=== PATIENT | male | born 1980 | race Caucasian/White ===

== ENCOUNTER 2017-02-21 09:14 | Emergency (ER) | payer MEDICAID, OTHER ==
[2017-02-21 09:18] VITALS: BP 149/84; BMI 24.1
--- NOTE | 2017-02-21 09:56 | DR.GENAD ---
HPI - PCP Primary Care Physician: SARWAT GUZMAN - HPI Comment HPI Comment: MACHINE RAN OVER PATIENT FOOT AND ANKKLE. UNABLE TO PUT WEIGHT ON LEFT ANKLE. SWELLING AND BRUISING PRESENT. - Complaint/Symptoms Chief Complaint Doctors Comments: PAIN LEFT FOOT AND ANKLE DUE TO INJURY 2 DAYS AGO. Chief Complaint:: PATIENT STATED THAT HE IS HAVING LEFT FOOT PAIN. WAS RAN OVER BY A MECHINE. - Nurses notes reviewed Nurses Notes Review: Yes - Source History Provided: Patient - Mode of Arrival Mode of Arrival: Ambulatory - Timing Onset of Chief Complaint: 02/19/17 Came on: Suddenly - Duration Duration: Constant Duration: Days - Severity Severity: Moderate PMH - PMH Past Medical History: Yes Past Medical History: Diabetes, Hypertension Past Medical History Comment: KIDNEY PANCREAS/TRANSPLANT Past Surgical History: Yes Surgical History: Cholecystectomy, Ortho Surgery, Other Past Surgical History Comment: TRANSPLANT - Family History History of Family Medical Conditions: Yes Family Medical History: Diabetes Mellitus, Cancer, [place], Coronary Artery Disease, Sudden Cardiac , Hypertension - Social History Does patient currently use any type of tobacco product: Yes Have you used tobacco products in the last 12 months: Yes Type of Tobacco Use: Cigarettes Does any household member use tobacco: No Alcohol Use: None Do you use any recreational Drugs:: No Lives With: Family Lives Where: Home - infectious screening In the last 2 months have you had wt loss of >10#?: NO Have you had fever, night sweats or hemotysis?: No Have you traveled outside the country in the last 6 months?: No ROS - Review of Systems Constitutional: No Symptoms Reported Eyes: No Symptoms Reported ENTM: No Symptoms Reported Respiratoy: No Symptoms Reported Cardiovascular: No Symptoms Reported Gastrointestinal/Abdominal: No Symptoms Reported Genitourinary: No Symptoms Reported Neurological: No Symptoms Reported Musculoskeletal: Muscle Pain, Left, Ankle, Foot Integumentary: No Symptoms Reported Hematologic/Lymphatic: No Symptoms Reported Endocrine: No Symptoms Reported All Other Systems: Reviewed and Negative PE - Vital Signs Vitals: Pulse Rate 93 Respiratory Rate 20 Blood Pressure 149/84 O2 Sat by Pulse Oximetry 99 - General Limitations: No Limitations General Appearance: Alert - Head Head Exam: Normal Inspection - Eyes Eye exam: Normal Appearance - ENT ENT Exam: Normal External Ear Exam Nose Exam: Normal Nose Exam Mouth Exam: Normal Inspection Throat Exam: Normal Inspection - Neck Neck Exam: Trachea Midline - Chest Chest Inspection: Symmetric Chest Wall Rise - Respiratory Respiratory Exam: Normal Lung Sounds Bilat Respiratory Exam: Bilateral Clear to Auscultation - Cardiovascular Cardiovascular Exam: Regular Rate, Normal Rhythm, Normal Heart Sounds - Abdominal Exam Abdominal Exam: Normal Bowel Sounds, Soft, Tenderness - Extremities Extremities Exam: Tenderness (SWELLING AND TENDERNESS LT FOOT AND ANKLE.), Joint Swelling (LEFT ANKLE). negative: Full ROM (DECREASE ROM LT ANKLE.) - Back Back Exam: Normal Inspection - Neurologic Neurological Exam: Alert, Oriented X3 - Psychiatric Psychiatric Exam: Anxious - Skin Skin Exam: Erythema (BRUISING LT ANKLE AND FOOT) [facility] - Additional Information Additional Information Obtained From: Family - Differential Diagnosis Differential Diagnosis: CONTUSION, SPRAIN, FRATURE LEFT ANKLE AND FOOT. Course - Treatment Treatment: SEE ORDERS. IM PAIN MED IN ED. PAIN DECREASING. ON CRUTCHES ALREADY. - Education/Counseling Education/Counseling: Patient, Education Educated On: Treatment, Diagnosis, Needs for Follow Up ROR - XRAY XRAY Interpreted by: Radiologist XRAY Findings: REPORT DISCUSS WITH PATIENT AND HIS FAMILY. - Diagnosis Discharge Problem: Left ankle sprain Qualifiers: Encounter type: initial encounter Involved ligament of ankle: unspecified ligament Qualified Code(s): S93.402A - Sprain of unspecified ligament of left ankle, initial encounter Contusion of left ankle Qualifiers: Encounter type: initial encounter Qualified Code(s): S90.02XA - Contusion of left ankle, initial encounter Contusion of left foot Qualifiers: Encounter type: initial encounter Qualified Code(s): S90.32XA - Contusion of left foot, initial encounter Sprain of left foot Qualifiers: Encounter type: initial encounter Qualified Code(s): S93.602A - Unspecified sprain of left foot, initial encounter - Discharge Plan Disposition: 01 HOME, SELF-CARE Condition: Stable Prescriptions: Hydrocodone-Acet 5 mg/325 mg [[place] 5/325 mg Tab] 1 tab PO Q6H PRN #15 tab PRN Reason: Pain - Follow ups/Referrals Follow ups/Referrals: NIKKY,None [Primary Care Provider] - 02/24/17 BRANT ADAIR [STAFF PHYSICIAN] - 02/24/17 - Instructions Instructions: Acute Ankle Sprain With Phase I Rehab-SportsMed, Crutch Use, Easy -to-Read Additional Instructions: RETURN TO ED IF WORSE. YOU ALSO HAVE CONTUSION AND SPARIN OF LEFT FOOT AND ANKLE.
[2017-02-21] MEDS ORDERED: MORPHINE SULFATE INJ 4 MG IM ONE (10:01)
[2017-02-21] MEDS ORDERED: ZOFRAN INJ 4 MG VIAL IM ONE (10:01)
[2017-02-21] MEDS ORDERED: ZOFRAN INJ 4 MG VIAL ONE (10:06)
[2017-02-21] MEDS ORDERED: MORPHINE SULFATE INJ 4 MG ONE (10:06)
--- NOTE | 2017-02-21 10:35 | RAD ---
HISTORY: Pain after injury Study: Three views left foot Comparison: None Findings: No acute cortical disruption or dislocation can be identified. No significant soft tissue swelling or injury can be seen. The visualized portions of the talus and calcaneus are unremarkable. IMPRESSION: 1. Negative exam. Reported By:
--- NOTE | 2017-02-21 10:36 | RAD ---
HISTORY: Injury, dorsal pain Study: Left ankle three view Comparison: None Findings: No acute cortical disruption or dislocation can be identified. The ankle mortise remains well align ed. No significant soft tissue swelling or injury can be seen. The visualized portions of the talu s and calcaneus are unremarkable. IMPRESSION: 1. Negative exam. Reported By:
== END 2017-02-21 11:08 | disposition home or self-care (01) ==
LOC: ER 09:24
DX: S93.402A Sprain of unspecified ligament of left ankle, initial encounter (principal); S90.02XA Contusion of left ankle, initial encounter; S90.32XA Contusion of left foot, initial encounter; S93.602A Unspecified sprain of left foot, initial encounter; X58.XXXA Exposure to other specified factors, initial encounter; Y92.9 Unspecified place or not applicable
CPT/HCPCS: 73610; 73630; 96372; 99282; J2270; J2405

== ENCOUNTER 2017-03-27 13:17 | Emergency (ER) | payer MEDICAID, OTHER ==
[2017-03-27 13:29] VITALS: BP 131/85; BMI 23.6
[2017-03-27] MEDS ORDERED: MORPHINE SULFATE INJ 4 MG IM ONE (15:35)
[2017-03-27] MEDS ORDERED: ZOFRAN INJ 4 MG VIAL IM ONE (15:35)
--- NOTE | 2017-03-27 15:37 | DR.GENAD ---
HPI - PCP Primary Care Physician: Manuel - Complaint/Symptoms Chief Complaint Doctors Comments: FELL, INJURY LEFT SHOULDER. PREVIUOS INJURY SAME SHOULDER. FELL TONIGHT. Chief Complaint:: "I fell about an hour ago and I felt something pop in my left shoulder. I have pain running from my neck all the way to the back of my shoulder. I have had an MRI done here in the past showing a torn rotator cuff, but I just want to see what kind of damage I just did to it." - Nurses notes reviewed Nurses Notes Review: Yes - Source History Provided: Patient - Mode of Arrival Mode of Arrival: Ambulatory - Timing Onset of Chief Complaint: 03/27/17 PMH - PMH Past Medical History: Yes Past Medical History: Diabetes, Hypertension Past Surgical History: Yes Surgical History: Cholecystectomy, Organ Transplant, Ortho Surgery, Other Past Surgical History Comment: Eye, shoulder, [place] installation, Kidney and pancreas transplant. - Family History History of Family Medical Conditions: Yes Family Medical History: Diabetes Mellitus, Cancer, [place], Coronary Artery Disease, Sudden Cardiac , Hypertension - Social History Does patient currently use any type of tobacco product: Yes Have you used tobacco products in the last 12 months: Yes Type of Tobacco Use: Cigarettes Does any household member use tobacco: Yes Alcohol Use: None Do you use any recreational Drugs:: No Lives With: Alone Lives Where: Home - infectious screening In the last 2 months have you had wt loss of >10#?: NO Have you had fever, night sweats or hemotysis?: No Have you traveled outside the country in the last 6 months?: No Isolation: Standard ROS - Review of Systems Constitutional: No Symptoms Reported Eyes: No Symptoms Reported ENTM: No Symptoms Reported Respiratoy: No Symptoms Reported Cardiovascular: No Symptoms Reported Gastrointestinal/Abdominal: No Symptoms Reported Genitourinary: No Symptoms Reported Neurological: No Symptoms Reported Musculoskeletal: Left, Shoulder (PAIN ) Integumentary: No Symptoms Reported Endocrine: No Symptoms Reported All Other Systems: Reviewed and Negative PE - Vital Signs Vitals: Temperature 98.1 F Pulse Rate 83 Respiratory Rate 18 Blood Pressure 131/85 O2 Sat by Pulse Oximetry 95 - General Limitations: No Limitations General Appearance: Alert - Head Head Exam: Normal Inspection - Eyes Eye exam: Normal Appearance - ENT ENT Exam: Normal External Ear Exam External Ear Exam: Normal External Inspection TM/Canal Exam: Bilateral Normal Nose Exam: Normal Nose Exam Mouth Exam: Normal Inspection Throat Exam: Normal Inspection - Neck Neck Exam: Trachea Midline - Chest Chest Inspection: Symmetric Chest Wall Rise - Respiratory Respiratory Exam: Normal Lung Sounds Bilat Respiratory Exam: Bilateral Clear to Auscultation - Cardiovascular Cardiovascular Exam: Regular Rate, Normal Rhythm, Normal Heart Sounds - Abdominal Exam Abdominal Exam: Normal Inspection - Extremities Extremities Exam: Tenderness (TENDERNESS LT SHOULDER.), Joint Swelling (LT SHOULDER). negative: Full ROM (DECREASE ROM.) - Back Back Exam: Normal Inspection - Neurologic Neurological Exam: Alert, Oriented X3 - Psychiatric Psychiatric Exam: Anxious - Skin Skin Exam: Normal Color MDM - Differential Diagnosis Differential Diagnosis: SPRAIN, CONTUSION FRACTURE LT SHOULDER. - Diagnosis Discharge Problem: Sprain of left shoulder - Discharge Plan Disposition: 01 HOME, SELF-CARE Condition: Stable Prescriptions: Acetaminophen with Codeine [Tylenol/Codeine #3 300-30 mg] 1 tab PO Q4-6H PRN # 15 tab PRN Reason: Pain Cyclobenzaprine HCl [FLEXERIL 10 MG *] 10 mg PO BID PRN #15 tab PRN Reason: - Follow ups/Referrals Follow ups/Referrals: DANIELLE GRUBER [Primary Care Provider] - 1 day - Instructions Instructions: Shoulder Sprain Additional Instructions: RETURN TO ED IF WORSE.
[2017-03-27] MEDS ORDERED: MORPHINE SULFATE INJ 4 MG ONE (15:43)
[2017-03-27] MEDS ORDERED: ZOFRAN INJ 4 MG VIAL ONE (15:43)
--- NOTE | 2017-03-27 16:14 | RAD ---
Left shoulder, three view Indication: Fall with left shoulder pain Comparison: MRI 06/07/15 Findings: No acute fracture or malalignment is identified. No appreciable degenerative changes are se en. The acromiohumeral interval is within normal limits. There is no gross soft tissue injury. Impression: No acute radiographic abnormality of the left shoulder. Reported By:
== END 2017-03-27 16:52 | disposition home or self-care (01) ==
LOC: ER 13:26
DX: S43.402A Unspecified sprain of left shoulder joint, initial encounter (principal); W19.XXXA Unspecified fall, initial encounter; Y92.9 Unspecified place or not applicable
CPT/HCPCS: 73030; 96372; 99282; 99283; J2270; J2405

== ENCOUNTER 2017-10-22 12:36 | Emergency (ER) | payer OTHER, MEDICAID ==
[2017-10-22 12:43] VITALS: BP 116/68; BMI 22.8
--- NOTE | 2017-10-22 13:26 | DR.URIAD ---
HPI - Time Seen Time seen: 13:25 - PCP Primary Care Physician: GRACIELA PINTO - HPI Comment HPI Comment: COUGH PRODUCTIVE , GREENISH SPUTUM. NON PRESCRIPTION MEDS NOT HELPING. GETTING WORSE. - Complaint Chief Complaint Doctors Comments: COUGH, CONGESTION AND CHEST PAIN TIMES ONE WEEK. Chief Complaint:: PT C/O FOR THE PAST WEEK HAVING CCC, AND THAT IT IS THICK AND WONT COME UP AND I AM TIRED OF FEELING BAD,, ,PT C/O CHILLS.. ? FEVER - Reviewed Nurses Notes Reviewed: Yes - Source History Provided: Patient - Mode of Arrival Mode of Arrival: Ambulatory - Timing Onset of Chief Complaint: 10/15/17 - Context Recent Treated Infections: None History of Respiratory: None - Quality Quality of Cough: Productive, Green Rhinorrhea: Brown Shortness of Breath: Moderate - Associated Signs and Symptoms Other Signs and Symptoms: Cough, Myalgias, Shortness of Breath, URI, Wheeze PMH - PMH Past Medical History: Yes Past Medical History: Diabetes, Hypertension Past Surgical History: Yes Surgical History: Cholecystectomy, Organ Transplant, Ortho Surgery, Other Past Surgical History Comment: KIDNEY AND PANCREAS TRANSPLANT,, [place] - Family History History of Family Medical Conditions: Yes Family Medical History: Diabetes Mellitus, Cancer, [place], Coronary Artery Disease, Sudden Cardiac , Hypertension - Social History Does patient currently use any type of tobacco product: Yes Have you used tobacco products in the last 12 months: Yes How many years tobacco product used: 26 Does any household member use tobacco: Yes Alcohol Use: None Do you use any recreational Drugs:: No Lives With: Family Lives Where: Home - infectious screening In the last 2 months have you had wt loss of >10#?: NO Have you had fever, night sweats or hemotysis?: No Have you traveled outside the country in the last 6 months?: No Isolation: Standard ROS - Review of Systems Constitutional: Weakness, Fatigue. negative: Chills, Fever Eyes: No Symptoms Reported. negative: Eye Pain, Discharge ENTM: Nose Discharge, Nose Congestion, Throat Pain. negative: Ear Pain Gastrointestinal/Abdominal: No Symptoms Reported Genitourinary: Other (paraplegia, in and out [facility].) Neurological: Pre-existing Deficit (paraplegia.), Other (possible tremors or shaking today.) Musculoskeletal: Muscle Pain Integumentary: Change in Color All Other Systems: Reviewed and Negative (patients mother and private nurse answering questions for patient.) PE - Vital Signs Vitals: Temperature 98.2 F Pulse Rate 78 Respiratory Rate 20 Blood Pressure 116/68 O2 Sat by Pulse Oximetry 98 - General General Appearance: Alert, Other (respiratory distress at home. indwelling trachiostomy with supplementary oxygen.) - Head Head Exam: Other (no acute finding.) - Eyes Eye exam: PERRL - ENT ENT Exam: Normal External Ear Exam, TM's Normal Bilaterally. negative: Normal Oropharynx (throat red) External Ear Exam: Normal External Inspection TM/Canal Exam: Bilateral Normal Throat Exam: Tonsillar Erythema. negative: Tonsillomegaly, Tonsillar Exudate - Neck Neck Exam: Trachea Midline - Chest Chest Inspection: Symmetric Chest Wall Rise - Respiratory Respiratory Exam: Bilateral Rhonchi, Lower Rhonchi - Cardiovascular Cardiovascular Exam: Tachycardia - Abdominal Exam Abdominal Exam: Normal Bowel Sounds, Soft. negative: Tenderness - Extremeties Extremities Exam: Other (shaking on and off today.) - Back Back Exam: Other (PAIN RECTAL AREA.) - Neurologic Neurological Exam: Alert, Oriented X3 - Psychiatric Psychiatric Exam: Anxious - Skin Skin Exam: Intact MDM - Differential Diagnosis Differential Diagnosis: Otitis media, Streptococcal pharyngitis, Viral pharyngitis, Pneumonia, Sinsusitis, URI Course - Treatment Treatment: SEE ORDERS. - Education/Counseling Education/Counseling: Patient, Education Educated On: Diagnosis, Needs for Follow Up ROR - Labs Reviewed Laboratory Results Reviewed?: Yes - XRAY XRAY Interpreted by: Radiologist XRAY Findings: report discuss with patient. - Diagnosis Discharge Problem: Bronchitis, Sinusitis - Discharge Plan Disposition: 01 HOME, SELF-CARE Condition: Stable Prescriptions: Amoxicillin [Amoxil 875 mg] 875 mg PO Q12H #20 tab Promethazine W/Codeine [PHENERGAN W/CODEINE 6.25mg/10mg (5mL) *] 5 ml PO Q6H PRN #120 ml PRN Reason: Cough - Follow ups/Referrals Follow ups/Referrals: NFD,None [Primary Care Provider] - 3 days - Instructions Instructions: Sinusitis, Adult, [id number], Acute Bronchitis, Adult, Easy-to- Read Additional Instructions: RETURN TO ED IF WORSE.
--- NOTE | 2017-10-22 13:46 | RAD ---
Examination: Chest x-ray. Clinical History: Shortness of breath, chest congestion, cough, chest pain. Technique: PA and lateral views of the chest were obtained. Comparison: None available. Findings: The cardiac and mediastinal contours are within normal limits. No pneumothorax or pleural effusion is noted. The lungs appear clear. No acute osseous abnormality is noted. Impression: 1. No acute disease. Reported By:
[2017-10-22] MEDS ORDERED: PHENERGAN W/CODEINE 6.25MG/10MG PO ONE (14:08)
[2017-10-22] MEDS ORDERED: AMOXIL CAP 500 MG PO ONE ×2 (14:08→14:17)
[2017-10-22] MEDS ORDERED: PHENERGAN W/CODEINE 6.25MG/10MG ONE (14:13)
== END 2017-10-22 14:29 | disposition home or self-care (01) ==
LOC: ER 12:47
DX: J40 Bronchitis, not specified as acute or chronic (principal); J32.9 Chronic sinusitis, unspecified
CPT/HCPCS: 71046; 99282

== ENCOUNTER → 2017-11-19 | Outpatient (CLI) | payer OTHER, MEDICAID ==
[2017-10-22 12:43] VITALS: BP 116/68
--- NOTE | 2017-11-19 10:00 | MRI ---
Indication: Left shoulder pain Exam: MRI left shoulder without contrast. Technique: Routine multiplanar multisequence imaging was performed through the left shoulder Comparison: 06/07/2015. Findings: There is moderate thickening and increased signal along the distal supraspinatus tendon ext ending to the insertion site . There is minimal fluid signal near the inferior articular surface , al tarsha the insertion site . There is no retraction seen . The infraspinatus tendon is mildly thickened w ith increased signal distally which is unchanged . There is minimal edema or fluid in the subdeltoid bursa. There is prominent downsloping of the acromion anteriorly causing mild to moderate narrowing o f the acromiohumeral space which is unchanged. The labrum and biceps tendon are intact and normal sig nal intensity. There is no significant joint effusion. The bone marrow signal is normal throughout. Impression: Moderate supraspinatus tendinopathy with questionable mild fraying or small partial-thickness tear a long the inferior articular surface distally which is not significantly changed. Minimal subdeltoid bursitis. Mild infraspinatus tendinopathy which is unchanged. Prominent downsloping of the acromion anteriorly causing mild to moderate narrowing of the acromiohum eral space which is unchanged. Reported By:
== END ==
LOC: RAD 08:29
PROVIDERS: ATTEND Nurse Practitioner Family
DX: M25.512 Pain in left shoulder (principal); M75.52 Bursitis of left shoulder
CPT/HCPCS: 73221

== ENCOUNTER 2024-09-02 14:00 | Observation (INO) ==
[2024-09-02] MEDS: TYLENOL 500 MG TAB EXTRA STRENGTH PO ONE ×2 (14:24→19:20)
[2024-09-02 14:36] LABS: ABG BASE EXCESS -1.9 mmol/L (-2.0-2.0); ABG HCO3 22.2 mmol/L (22-26)
[2024-09-02] MEDS ORDERED: ZOSYN VIAL 4.5 GRAMS IV ONE (14:36)
[2024-09-02 14:37] LABS: ABG ALLEN TEST POS
[2024-09-02 14:45] LABS: LYMPHOCYTES # (AUTO) 0.6 X10^3/uL (1.3-2.9); NEUTROPHILS # (AUTO) 7.1 x10^3/uL (2.2-4.8)
[2024-09-02 14:49] LABS: BASOPHILS % (AUTO) 0.2 % (0.2-1.0); EOSINOPHILS % (AUTO) 0.1 % (0.9-2.9); HEMATOCRIT 41.9 % (42.0-54.0); HEMOGLOBIN 14.2 g/dL (13.5-18.0); LYMPHOCYTES % (AUTO) 7.2 % (21.0-51.0); MEAN CORPUSCULAR HEMOGLOBIN 29.9 pg (27.0-34.0); MEAN CORPUSCULAR HGB CONC 33.8 g/dL (33.0-35.0); MEAN CORPUSCULAR VOLUME 88.3 fL (80.0-100.0); MEAN PLATELET VOLUME 8.4 fL (7.4-11.0); MONOCYTES # (AUTO) 0.7 x10^3/uL (0.3-0.8); MONOCYTES % (AUTO) 8.1 % (0.0-13.0); NEUTROPHILS % (AUTO) 84.4 % (42.0-75.0); PLATELET COUNT 139 X10^3/uL (150.0-450.0); RED BLOOD COUNT 4.75 X10^6/uL (4.7-6.0); RED CELL DISTRIBUTION WIDTH 15.3 % (11.6-16.5); WHITE BLOOD COUNT 8.5 X10^3/uL (3.6-10.0)
[2024-09-02] MEDS: ZOSYN VIAL 4.5 GRAMS 4.5 G in NS 100 ML IV 100 ML IV SCH (15:07)
[2024-09-02] MEDS: NS 1,000 ML IV 1,000 ML IV SCH (15:07)
--- NOTE | 2024-09-02 15:18 | RAD ---
EXAM: Portable chest HISTORY: Shortness of breath COMPARISON: 07/03/2024 FINDINGS: Heart is upper limits normal in size. Jossie are normal. Lung kern are clear. No pleural effusio ns identified. No pneumothoraces identified. Bony thorax is unremarkable. IMPRESSION: No significant abnormality identified THIS IS AN ELECTRONICALLY VERIFIED FINAL REPORT 09/02/2024 2:55 PM - Electronically signed by Wei Oviedo MD
[2024-09-02 15:23] LABS: BLOOD UREA NITROGEN 23 mg/dL (7-18); CALCIUM 9.4 mg/dL (8.5-10.1); CARBON DIOXIDE 26.2 mmol/L (21-32); CHLORIDE 97 mmol/L (98-107); CREATININE 1.71 mg/dL (0.70-1.30); GLUCOSE 92 mg/dL (65-99); POTASSIUM 3.8 mmol/L (3.5-5.1); SODIUM 132 mmol/L (136-145); eGFR NON BLACK RACES 46 (>60)
[2024-09-02 15:24] LABS: INR 1.13 (0.8-1.3)
[2024-09-02] MEDS: PHARMACY CONSULT - VANCOMYCIN XX SCH (15:33)
[2024-09-02] MEDS: VANCOMYCIN HCL 1 G in D5W 250 ML IV 250 ML IV SCH (15:54)
[2024-09-02 18:05] LABS: BILIRUBIN,URINE NEGATIVE (NEGATIVE); BLOOD/HEMOGLOBIN,URINE NEGATIVE (NEGATIVE); GLUCOSE, URINE NEGATIVE (NEGATIVE); KETONES,URINE NEGATIVE (NEGATIVE); LEUKOCYTE ESTERASE ,URINE NEGATIVE (NEGATIVE); NITRITES,URINE NEGATIVE (NEGATIVE); PROTEIN,URINE 2+ (NEGATIVE); UROBILINOGEN,URINE NORMAL (NORMAL)
[2024-09-02 18:12] LABS: APPEARANCE,URINE CLEAR (CLEAR); COLOR,URINE YELLOW (YELLOW)
[2024-09-02 18:13] LABS: BACTERIA,URINE TRACE /HPF (NEGATIVE); RBC,URINE 0-2 /HPF (0-3); SQUAMOUS EPITHELIAL CELL,UR NEGATIVE /HPF (NEGATIVE)
--- NOTE | 2024-09-02 19:04 | DR.GENAD ---
HPI Time Seen Time Seen by Provider: 09/02/24 14:27 PCP Primary Care Physician: Annel Taylor HPI Comment HPI Comment: Patient states his girlfriend had been sick recently. Over the last 2 days he has had cough, congestion, nausea, diarrhea and shortness of breath. He states he feels like he had a fever but did not check his temperature. 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 Complaint/Symptoms Chief Complaint:: Patient states that for the past two days he has had congestion, coughing, feeling nauseated, and diarrhea. He states that he has been unable to sleep, eat, or drink during this time. He also states that he has had chills, but has not checked his temperature. He states that he has pain in the center of his chest whenever he breaths. He states that he has felt short of breath since yesterday morning. COVID-19 Coronavirus risk:travel/contact w/high risk person: Yes Has patient experienced Coronavirus symptoms: Yes Coronavirus symptoms experienced: Fever, Coughing and Shortness of Breath Source History Provided: Patient Mode of Arrival Mode of Arrival: Ambulatory Timing Onset of Chief Complaint: 08/31/24 PMH PMH Past Medical History: Yes Past Medical History: Diabetes and Hypertension Past Surgical History: Yes Surgical History: Cholecystectomy, Organ Transplant and Ortho Surgery Past Surgical History Comment: Pancreas and kidney transplant Family History History of Family Medical Conditions: Yes Family Medical History: Diabetes Mellitus, Cancer, [place], Coronary Artery Disease and Hypertension Social History Does patient currently use any type of tobacco product: No Have you used tobacco products in the last 12 months: No Type of Tobacco Use: None Does any household member use tobacco: No Alcohol Use: None Do you use any recreational Drugs:: No Lives With: Family Lives Where: Home Travel Risk Coronavirus risk:travel/contact w/high risk person: Yes Has patient experienced Coronavirus symptoms: Yes Coronavirus symptoms experienced: Fever, Coughing and Shortness of Breath Infectious screening In the last 2 months have you had wt loss of >10#?: NO Have you had fever, night sweats or hemotysis?: No Have you traveled outside the country in the last 6 months?: No Isolation: Droplet ROS Review of Systems Constitutional: See HPI, Chills, Fever, Malaise and Fatigue Eyes: No Symptoms Reported ENTM: See HPI, Nose Discharge and Nose Congestion Respiratoy: See HPI, Dry Cough and Short of Breath; negative Wheezing Cardiovascular: No Symptoms Reported; negative Chest Pain, Edema, Palpitations or Syncope Gastrointestinal/Abdominal: See HPI, Diarrhea and Nausea; negative Abdominal Pain, Constipation or Vomiting Genitourinary: No Symptoms Reported Neurological: No Symptoms Reported Musculoskeletal: No Symptoms Reported Integumentary: No Symptoms Reported Hematologic/Lymphatic: No Symptoms Reported Endocrine: No Symptoms Reported Psychiatric: No Symptoms Reported All Other Systems: Reviewed and Negative PE Vital Signs Vitals: Vital Signs Temperature 102.7 F Temperature 101.5 F Temperature 103.0 F Pulse Rate 93 Pulse Rate 90 Pulse Rate 96 Pulse Rate 84 Pulse Rate 82 Pulse Rate 79 Pulse Rate 83 Pulse Rate 83 Pulse Rate 82 Pulse Rate 88 Pulse Rate 83 Pulse Rate 87 Pulse Rate 89 Pulse Rate 88 Pulse Rate 93 Pulse Rate 95 Pulse Rate 96 Pulse Rate 95 Pulse Rate 96 Pulse Rate 97 Pulse Rate 96 Respiratory Rate 20 Respiratory Rate 41 Respiratory Rate 35 Respiratory Rate 29 Respiratory Rate 28 Respiratory Rate 31 Respiratory Rate 29 Respiratory Rate 29 Respiratory Rate 34 Respiratory Rate 39 Respiratory Rate 11 Respiratory Rate 26 Respiratory Rate 35 Respiratory Rate 21 Respiratory Rate 33 Respiratory Rate 33 Respiratory Rate 33 Respiratory Rate 18 Respiratory Rate 73 Respiratory Rate 31 Respiratory Rate 31 Respiratory Rate 18 Respiratory Rate 18 Blood Pressure 173/79 Blood Pressure 160/75 Blood Pressure 147/70 Blood Pressure 123/67 Blood Pressure 166/77 O2 Sat by Pulse Oximetry 90 O2 Sat by Pulse Oximetry 90 O2 Sat by Pulse Oximetry 84 O2 Sat by Pulse Oximetry 95 O2 Sat by Pulse Oximetry 95 O2 Sat by Pulse Oximetry 95 O2 Sat by Pulse Oximetry 95 O2 Sat by Pulse Oximetry 94 O2 Sat by Pulse Oximetry 93 O2 Sat by Pulse Oximetry 94 O2 Sat by Pulse Oximetry 94 O2 Sat by Pulse Oximetry 95 O2 Sat by Pulse Oximetry 94 O2 Sat by Pulse Oximetry 95 O2 Sat by Pulse Oximetry 94 O2 Sat by Pulse Oximetry 94 O2 Sat by Pulse Oximetry 95 O2 Sat by Pulse Oximetry 93 O2 Sat by Pulse Oximetry 95 O2 Sat by Pulse Oximetry 95 O2 Sat by Pulse Oximetry 89 General Limitations: No Limitations General Appearance: Alert and In No Apparent Distress Head Head Exam: Normal Inspection Eyes Eye exam: Normal Appearance ENT ENT Exam: Normal Exam External Ear Exam: Normal External Inspection TM/Canal Exam: Bilateral: Normal Nose Exam: Normal Nose Exam Mouth Exam: Normal Inspection Throat Exam: Normal Inspection Neck Neck Exam: Normal Inspection Chest Chest Inspection: Normal Inspection Respiratory Respiratory Exam: Respiratory Distress and Other (Coarse bilaterally) Cardiovascular Cardiovascular Exam: Regular Rate and Normal Rhythm Abdominal Exam Abdominal Exam: Normal Inspection, Normal Bowel Sounds and Soft; negative Distention, Tenderness, Guarding, Rebound or Rigidity Extremities Extremities Exam: Normal Inspection Back Back Exam: Normal Inspection Neurologic Neurological Exam: Alert and Oriented X3 Psychiatric Psychiatric Exam: Normal Affect and Normal Mood Skin Skin Exam: Warm, Dry, Intact and Normal Color COURSE Treatment Treatment: Patient improved during stay in the ER. He is still having some hypoxia. Discussed results of workup with patient. Patient does not have pulmonary embolism but he does seem to have some bilateral pneumonia as well as influenza A. I suspect the inflammation in the GI system is more related to the influenza but I will let hospitalist see how the patient is doing in the morning for possible further workup versus just continuing antibiotics. Consultation Called: 19:35 Consultation Comments: Discussed case with Dr. Ruiz. He is agreeable to admission. [facility] Labs Reviewed 09/02/24 14:35 09/02/24 14:35 Laboratory: WBC 8.5 X10^3/uL (3.6-10.0) 09/02/24 14:35 RBC 4.75 X10^6/uL (4.7-6.0) 09/02/24 14:35 Hgb 14.2 g/dL (13.5-18.0) 09/02/24 14:35 Hct 41.9 % (42.0-54.0) L 09/02/24 14:35 MCV 88.3 fL (80.0-100.0) 09/02/24 14:35 MCH 29.9 pg (27.0-34.0) 09/02/24 14:35 MCHC 33.8 g/dL (33.0-35.0) 09/02/24 14:35 RDW 15.3 % (11.6-16.5) 09/02/24 14:35 Plt Count 139 X10^3/uL (150.0-450.0) L 09/02/24 14:35 MPV 8.4 fL (7.4-11.0) 09/02/24 14:35 Neut % (Auto) 84.4 % (42.0-75.0) H 09/02/24 14:35 Lymph % (Auto) 7.2 % (21.0-51.0) L 09/02/24 14:35 [place] % (Auto) 8.1 % (0.0-13.0) 09/02/24 14:35 Eos % (Auto) 0.1 % (0.9-2.9) L 09/02/24 14:35 Baso % (Auto) 0.2 % (0.2-1.0) 09/02/24 14:35 Neut # (Auto) 7.1 x10^3/uL (2.2-4.8) H 09/02/24 14:35 Lymph # (Auto) 0.6 X10^3/uL (1.3-2.9) L 09/02/24 14:35 [place] # (Auto) 0.7 x10^3/uL (0.3-0.8) 09/02/24 14:35 Eos # (Auto) 0.0 x10^3/uL (0.0-0.2) 09/02/24 14:35 Baso # (Auto) 0.0 X10^3/uL (0.0-0.1) 09/02/24 14:35 Absolute Nucleated RBC 0.0 /100WBC 09/02/24 14:35 PT 14.2 SECONDS (11.8-14.3) 09/02/24 15:01 INR Target Range - 09/02/24 15:01 INR 1.13 (0.8-1.3) 09/02/24 15:01 APTT 36.0 SECONDS (22.9-36.5) 09/02/24 15:01 PTT Comment - 09/02/24 15:01 D-Dimer 0.67 ug/ml (0.0-0.57) H 09/02/24 17:18 Sample Site Rra 09/02/24 14:32 ABG pH 7.410 (7.35-7.45) 09/02/24 14:32 ABG pCO2 35.0 mmHg (35.0-45.0) 09/02/24 14:32 ABG pO2 51.0 mmHg (80.0-100.0) L 09/02/24 14:32 ABG HCO3 22.2 mmol/L (22-26) 09/02/24 14:32 ABG O2 Saturation 86.0 % (90-100) L 09/02/24 14:32 ABG Base Excess -1.9 mmol/L (-2.0-2.0) 09/02/24 14:32 Caleb Test Pos 09/02/24 14:32 A-a Gradient 55.0 mmHg 09/02/24 14:32 FiO2 21.0 09/02/24 14:32 Blood Gas Comments Pt hayley well eb 09/02/24 14:32 Sodium 132 mmol/L (136-145) L 09/02/24 14:35 Corrected Sodium TNP 09/02/24 14:35 Potassium 3.8 mmol/L (3.5-5.1) 09/02/24 14:35 Chloride 97 mmol/L (98-107) L 09/02/24 14:35 Carbon Dioxide 26.2 mmol/L (21-32) 09/02/24 14:35 BUN 23 mg/dL (7-18) H 09/02/24 14:35 Creatinine 1.71 mg/dL (0.70-1.30) H 09/02/24 14:35 Est GFR (MDRD) Af Amer 56 (>60) L 09/02/24 14:35 Est GFR (MDRD) Non-Af 46 (>60) L 09/02/24 14:35 Glucose 92 mg/dL (65-99) 09/02/24 14:35 Lactic Acid 0.3 mmol/L (0.4-2.0) L 09/02/24 17:19 Calcium 9.4 mg/dL (8.5-10.1) 09/02/24 14:35 Total Bilirubin 0.50 mg/dL (0.2-1.0) 09/02/24 14:35 Specimen Type Clean catch urine 09/02/24 17:52 Urine Color Yellow (YELLOW) 09/02/24 17:52 Urine Appearance Clear (CLEAR) 09/02/24 17:52 Urine pH 6.0 (5.0 - 8.0) 09/02/24 17:52 Ur Specific [place] 1.020 (1.000-1.030) 09/02/24 17:52 Urine Protein 2+ (NEGATIVE) 09/02/24 17:52 Urine Glucose (UA) Negative (NEGATIVE) 09/02/24 17:52 Urine Ketones Negative (NEGATIVE) 09/02/24 17:52 Urine Blood Negative (NEGATIVE) 09/02/24 17:52 Urine Nitrite Negative (NEGATIVE) 09/02/24 17:52 Urine Bilirubin Negative (NEGATIVE) 09/02/24 17:52 Urine Urobilinogen Normal (NORMAL) 09/02/24 17:52 Ur Leukocyte Esterase Negative (NEGATIVE) 09/02/24 17:52 Urine RBC 0-2 /HPF (0-3) 09/02/24 17:52 Urine WBC 0-2 /HPF (0-5) 09/02/24 17:52 Ur Squamous Epith Cells Negative /HPF (NEGATIVE) 09/02/24 17:52 Amorphous Sediment 2+ /HPF (NEGATIVE) 09/02/24 17:52 Urine Bacteria Trace /HPF (NEGATIVE) 09/02/24 17:52 Ur Culture Indicated? No/not indicated 09/02/24 17:52 SARS-CoV-2 (PCR) Negative (NEGATIVE) 09/02/24 17:15 Influenza Type A (PCR) Positive (NEGATIVE) A 09/02/24 17:15 Influenza Type B (PCR) Negative (NEGATIVE) 09/02/24 17:15 RSV (PCR) Negative (NEGATIVE) 09/02/24 17:15 Opioid Opioid Risk Tool Age (Omar box if 16-45): No History of Preadolescent Sexual Abuse: No Total: 0 Total Score Risk Category: Low Risk Copyright: Bill JACKSON predicting aberrant behaviors Discharge Plan Diagnosis Discharge Problem: Influenza A, Hypoxia Bilateral pneumonia Qualifiers: Pneumonia type: due to unspecified organism Lung location: lower lobe of lung Qualified Code(s): J18.9 - Pneumonia, unspecified organism Discharge Plan Patient Disposition: ADMITTED INPATIENT Condition: Stable Prescriptions: No Action mycophenolate mofetil 250 mg capsule 500 mg PO BID prednisone 5 mg tablet 5 mg PO DAILY tacrolimus 1 mg capsule See Rx Instructions .ROUTE .COMPLEX Patient Comments: TAKE 4 CAPSULES BY MOUTH IN THE MORNING AND 3 IN THE EVENING Rx Instructions: 4 capsules po daily in the morning and 3 capsules daily in the evening. Health Concerns: Post Hospitalization: new medications and changes needed to prevent readmission or further decline. Pt educated and given instructions on all concerns. Plan of Treatment: Continue with present treatment and follow up plan. Pt is to keep follow up appointment as instructed and take medications as ordered. Orders to Discharge Patient Discharge Orders: Transfer (Routine); Ordered 09/02/24 Ordered By: Jaylen Mariano Follow ups/Referrals Follow ups/Referrals: [facility],None [STAFF PHYSICIAN] - 3 days Instructions Stand Alone Forms: Find Help Web Site, Post Hospital Follow Up Care
--- NOTE | 2024-09-02 19:30 | CT ---
EXAM:CTA, CHESTHISTORY:past two days he has had congestion, coughing, feeling nauseated, and diarrhea. He states that he has been unable to sleep, eat, or drink during this time.;COMPARISON:Frontal chest radiograph same day 2:42 p.m.TECHNIQUE:CT angiography of the chest with intravenous. Three-dimensional reconstructions and/or MIPS images were produced and reviewed.FINDINGS:The bolus timing is adequate. Negative for pulmonary embolus. The thoracic aorta tapers normally. The main pulmonary outflow track spans 3.5 cm. Scattered coronary atherosclerotic calcifications are present. Shotty mediastinal lymph nodes are present.Limited visualization of the upper abdomen demonstrates clips from prior cholecystectomy. Bilateral renal atrophy. There is diffuse gastric wall thickening which is incompletely evaluated. Lung windows demonstrate moderate bilateral lower lobe pneumonia.IMPRESSION:Negative for pulmonary embolus.Moderate bibasilar pneumonia.Diffuse gastric wall thickening is incompletely evaluated. Consider upper GI study or upper endoscopy for further detail.All CT scans at this facility use dose modulation, iterative reconstruction, and/or weight based dosing when appropriate to reduce radiation dose to as low as reasonably achievable.THIS IS AN ELECTRONICALLY VERIFIED FINAL REPORT09/02/2024 7:27 PM - Electronically signed by Deangelo Miranda MD
[2024-09-02] MEDS ORDERED: TUSSIONEX PENNKINETIC SUSP PO PRN (20:31)
[2024-09-02] MEDS: DUONEB 0.5 MG/3 MG (3 mL) NEB SCH (21:25)
[2024-09-02] MEDS: PULMICORT NEB TX 0.5 MG NEB SCH (21:25)
[2024-09-02] MEDS: TAMIFLU PO SCH (22:00)
[2024-09-02] MEDS: ROBITUSSIN DM PO SCH (22:00)
[2024-09-02] MEDS: NS 250 ML IV 25 ML IV PRN (22:10)
[2024-09-03 00:27] VITALS: BMI 19.8
[2024-09-03] MEDS: TYLENOL 500 MG TAB EXTRA STRENGTH PO ONE ×2 (03:42→03:46)
[2024-09-03] MEDS: NS 100 ML IV 100 ML ONE ×2 (03:43)
[2024-09-03] MEDS: OMNIPAQUE 350 mg/mL 100 mL BTL 100 ML ONE (03:43)
[2024-09-03] MEDS: PULMICORT NEB TX 0.5 MG NEB ONE (03:46)
[2024-09-03] MEDS: TYLENOL 500 MG TAB EXTRA STRENGTH PO PRN (04:59)
--- NOTE | 2024-09-03 06:26 | RAD ---
EXAM: Two-view chest HISTORY: Pneumonia COMPARISON: 09/02/2023 FINDINGS: Heart size is normal. Jossie are normal. There is new increased density in the right lung base like ly a combination of infiltrate and subsegmental atelectasis. Remainder of the lung kern are clear with the exception of very minimal subsegmental atelectasis in the left costophrenic angle. No pleur al effusions or pneumothoraces. Bony thorax is unremarkable. IMPRESSION: New increased density in the right lung base likely a combination of infiltrate and subsegmental ate lectasis THIS IS AN ELECTRONICALLY VERIFIED FINAL REPORT 09/03/2024 6:22 AM - Electronically signed by Wei Oviedo MD
[2024-09-03] MEDS: NS 1/2 1,000 ML IV 1,000 ML IV SCH (06:30)
[2024-09-03] MEDS: ZOSYN VIAL 3.375 GRAMS 3.375 G in NS 100 ML IV 100 ML IV SCH (06:32)
[2024-09-03 06:47] LABS: HEMOGLOBIN 12.6 g/dL (13.5-18.0); MEAN PLATELET VOLUME 8.9 fL (7.4-11.0); MONOCYTES # (AUTO) 0.7 x10^3/uL (0.3-0.8); NEUTROPHILS # (AUTO) 6.8 x10^3/uL (2.2-4.8)
[2024-09-03 06:51] LABS: BASOPHILS # (AUTO) 0.1 X10^3/uL (0.0-0.1); BASOPHILS % (AUTO) 1.2 % (0.2-1.0); HEMATOCRIT 37.7 % (42.0-54.0); LYMPHOCYTES # (AUTO) 1.3 X10^3/uL (1.3-2.9); LYMPHOCYTES % (AUTO) 14.2 % (21.0-51.0); MEAN CORPUSCULAR HEMOGLOBIN 29.8 pg (27.0-34.0); MEAN CORPUSCULAR HGB CONC 33.4 g/dL (33.0-35.0); MEAN CORPUSCULAR VOLUME 89.2 fL (80.0-100.0); MONOCYTES % (AUTO) 7.5 % (0.0-13.0); NEUTROPHILS % (AUTO) 77.1 % (42.0-75.0); PLATELET COUNT 127 X10^3/uL (150.0-450.0); RED BLOOD COUNT 4.23 X10^6/uL (4.7-6.0); RED CELL DISTRIBUTION WIDTH 15.1 % (11.6-16.5); WHITE BLOOD COUNT 8.8 X10^3/uL (3.6-10.0)
[2024-09-03 06:56] LABS: ALANINE AMINOTRANSFERASE 29 Units/L (12-78); ALKALINE PHOSPHATASE 88 Units/L (46-116); ASPARTATE AMINO TRANSFERASE 33 Units/L (15-37); BLOOD UREA NITROGEN 21 mg/dL (7-18); CALCIUM 8.1 mg/dL (8.5-10.1); CARBON DIOXIDE 23.1 mmol/L (21-32); CHLORIDE 101 mmol/L (98-107); COR CA(FOR HYPOALB) 8.9 mg/dL (8.5-10.1); CREATININE 1.68 mg/dL (0.70-1.30); GLUCOSE 104 mg/dL (65-99); POTASSIUM 3.6 mmol/L (3.5-5.1); SODIUM 133 mmol/L (136-145); TOTAL PROTEIN 6.5 g/dL (6.4-8.2); eGFR NON BLACK RACES 47 (>60)
[2024-09-03] MEDS: NS 1/2 1,000 ML IV 1,000 ML IV ONE (08:39)
[2024-09-03] MEDS: LEVAQUIN PREMIX IV 750 MG 750 MG/150 ML BAG IV SCH (08:46)
[2024-09-03] MEDS: VISBIOME PROBIOTIC CAP 112.5 B or equivalent PO SCH (08:50)
[2024-09-03] MEDS: LOVENOX INJ 40 MG SYR SC SCH (08:50)
[2024-09-03] MEDS: VANCOMYCIN HCL 1 G in D5W 250 ML IV 250 ML IV SCH (08:54)
[2024-09-03] MEDS ORDERED: DECADRON INJ IVP SCH (09:00)
[2024-09-03] MEDS: DECADRON TAB PO SCH (09:03)
[2024-09-03] MEDS: DECADRON TAB ONE (09:18)
[2024-09-03] MEDS: PATIENT'S HOME MEDICATION PO SCH ×3 (09:38→20:31)
[2024-09-03] MEDS: TACROLIMUS PO SCH (09:38)
[2024-09-03] MEDS: NORVASC TAB 10 MG PO SCH (09:56)
[2024-09-03] MEDS: LOPRESSOR TAB 50 MG PO SCH (09:57)
[2024-09-03] MEDS: PROTONIX TAB 40 MG PO SCH (09:57)
[2024-09-03] MEDS: APRESOLINE TAB 25 MG PO SCH (09:57)
--- NOTE | 2024-09-03 14:07 | DR.H&P ---
H&P History & Physical for Day of: H&P Date: 09/03/24 Chief Complaint Chief Complaint: fever History of Present Illness History of Present Illness: Patient presented to ER from home due to fever, chills, cough, malaise. Girlfriend was sick and he tested positive for flu in the ER. Also found to be hypoxic on room air. Mildly tachycardic with tachypnea also present. White count normal. Responded well to O2 supplementation, nebulizers, and steroids. Feels better this morning but still tired. O2 dropped to 86% on room air. PSH: Kidney transplant, pancreatic transplant. ROS: 12 point ROS negative septa as noted in HPI. PE: Ill-appearing male in no acute distress. Wearing nasal cannula. Lungs diminished at right base with wheezing. Heart regular rate and rhythm. Mood and affect appropriate. Speech is clear and strong. Skin is cool and diaphoretic. Head NCAT. EOMI. Hearing intact conversation. Trachea is midline with full range of motion of cervical spine. Past Medical History Past Medical History: Diabetes and Hypertension Past Surgical History Surgical History: Cholecystectomy and Organ Transplant Family History Family Medical History: Diabetes Mellitus, Cancer and Heart Failure Social History Does patient currently use any type of tobacco product: No Have you used tobacco products in the last 12 months: No Type of Tobacco Use: None Does any household member use tobacco: No Alcohol Use: None Drug Use: None Medications Home Medications: Home Medications Medication Instructions Recorded Confirmed Type mycophenolate mofetil 250 mg 500 mg PO BID 09/02/24 09/02/24 History capsule prednisone 5 mg tablet 5 mg PO DAILY 09/02/24 09/02/24 History tacrolimus 1 mg capsule, See Rx Instructions .Route .COMPLEX 09/02/24 09/02/24 History immediate-release Allergies Allergies Allergy/AdvReac Type Severity Reaction Status Date / Time NSAIDS (Non-Steroidal AdvReac Verified 07/27/24 21:49 Anti-Inflamma Labs 09/03/24 05:00 09/03/24 05:00 Labs: 09/03/24 06:25 Sputum - Expectorated Sputum - Final Laboratory WBC 8.8 X10^3/uL (3.6-10.0) 09/03/24 05:00 RBC 4.23 X10^6/uL (4.7-6.0) L 09/03/24 05:00 Hgb 12.6 g/dL (13.5-18.0) L 09/03/24 05:00 Hct 37.7 % (42.0-54.0) L 09/03/24 05:00 MCV 89.2 fL (80.0-100.0) 09/03/24 05:00 MCH 29.8 pg (27.0-34.0) 09/03/24 05:00 MCHC 33.4 g/dL (33.0-35.0) 09/03/24 05:00 RDW 15.1 % (11.6-16.5) 09/03/24 05:00 Plt Count 127 X10^3/uL (150.0-450.0) L 09/03/24 05:00 MPV 8.9 fL (7.4-11.0) 09/03/24 05:00 Neut % (Auto) 77.1 % (42.0-75.0) H 09/03/24 05:00 Lymph % (Auto) 14.2 % (21.0-51.0) L 09/03/24 05:00 [place] % (Auto) 7.5 % (0.0-13.0) 09/03/24 05:00 Eos % (Auto) 0.0 % (0.9-2.9) L 09/03/24 05:00 Baso % (Auto) 1.2 % (0.2-1.0) H 09/03/24 05:00 Neut # (Auto) 6.8 x10^3/uL (2.2-4.8) H 09/03/24 05:00 Lymph # (Auto) 1.3 X10^3/uL (1.3-2.9) 09/03/24 05:00 [place] # (Auto) 0.7 x10^3/uL (0.3-0.8) 09/03/24 05:00 Eos # (Auto) 0.0 x10^3/uL (0.0-0.2) 09/03/24 05:00 Baso # (Auto) 0.1 X10^3/uL (0.0-0.1) 09/03/24 05:00 Absolute Nucleated RBC 0.0 /100WBC 09/03/24 05:00 PT 14.2 SECONDS (11.8-14.3) 09/02/24 15:01 INR Target Range - 09/02/24 15:01 INR 1.13 (0.8-1.3) 09/02/24 15:01 APTT 36.0 SECONDS (22.9-36.5) 09/02/24 15:01 PTT Comment - 09/02/24 15:01 D-Dimer 0.67 ug/ml (0.0-0.57) H 09/02/24 17:18 Sample Site Rra 09/02/24 14:32 ABG pH 7.410 (7.35-7.45) 09/02/24 14:32 ABG pCO2 35.0 mmHg (35.0-45.0) 09/02/24 14:32 ABG pO2 51.0 mmHg (80.0-100.0) L 09/02/24 14:32 ABG HCO3 22.2 mmol/L (22-26) 09/02/24 14:32 ABG O2 Saturation 86.0 % (90-100) L 09/02/24 14:32 ABG Base Excess -1.9 mmol/L (-2.0-2.0) 09/02/24 14:32 Caleb Test Pos 09/02/24 14:32 A-a Gradient 55.0 mmHg 09/02/24 14:32 FiO2 21.0 09/02/24 14:32 Blood Gas Comments Pt hayley well eb 09/02/24 14:32 Sodium 133 mmol/L (136-145) L 09/03/24 05:00 Corrected Sodium TNP 09/03/24 05:00 Potassium 3.6 mmol/L (3.5-5.1) 09/03/24 05:00 Chloride 101 mmol/L (98-107) 09/03/24 05:00 Carbon Dioxide 23.1 mmol/L (21-32) 09/03/24 05:00 BUN 21 mg/dL (7-18) H 09/03/24 05:00 Creatinine 1.68 mg/dL (0.70-1.30) H 09/03/24 05:00 Est GFR (MDRD) Af Amer 57 (>60) L 09/03/24 05:00 Est GFR (MDRD) Non-Af 47 (>60) L 09/03/24 05:00 Glucose 104 mg/dL (65-99) H 09/03/24 05:00 POC Glucose (mg/dL) 107 mg/dL (65-99) H 09/03/24 06:34 Lactic Acid 0.3 mmol/L (0.4-2.0) L 09/02/24 17:19 Calcium 8.1 mg/dL (8.5-10.1) L 09/03/24 05:00 Corrected Calcium 8.9 mg/dL (8.5-10.1) 09/03/24 05:00 Total Bilirubin 0.40 mg/dL (0.2-1.0) 09/03/24 05:00 AST 33 Units/L (15-37) 09/03/24 05:00 ALT 29 Units/L (12-78) 09/03/24 05:00 Alkaline Phosphatase 88 Units/L (46-116) 09/03/24 05:00 Total Protein 6.5 g/dL (6.4-8.2) 09/03/24 05:00 Albumin 3.0 g/dL (3.4-5.0) L 09/03/24 05:00 Globulin 3.5 g/dL (2.5-4.5) 09/03/24 05:00 Albumin/Globulin Ratio 0.9 Ratio (1.1-2.1) L 09/03/24 05:00 Specimen Type Clean catch urine 09/02/24 17:52 Urine Color Yellow (YELLOW) 09/02/24 17:52 Urine Appearance Clear (CLEAR) 09/02/24 17:52 Urine pH 6.0 (5.0 - 8.0) 09/02/24 17:52 Ur Specific [place] 1.020 (1.000-1.030) 09/02/24 17:52 Urine Protein 2+ (NEGATIVE) 09/02/24 17:52 Urine Glucose (UA) Negative (NEGATIVE) 09/02/24 17:52 Urine Ketones Negative (NEGATIVE) 09/02/24 17:52 Urine Blood Negative (NEGATIVE) 09/02/24 17:52 Urine Nitrite Negative (NEGATIVE) 09/02/24 17:52 Urine Bilirubin Negative (NEGATIVE) 09/02/24 17:52 Urine Urobilinogen Normal (NORMAL) 09/02/24 17:52 Ur Leukocyte Esterase Negative (NEGATIVE) 09/02/24 17:52 Urine RBC 0-2 /HPF (0-3) 09/02/24 17:52 Urine WBC 0-2 /HPF (0-5) 09/02/24 17:52 Ur Squamous Epith Cells Negative /HPF (NEGATIVE) 09/02/24 17:52 Amorphous Sediment 2+ /HPF (NEGATIVE) 09/02/24 17:52 Urine Bacteria Trace /HPF (NEGATIVE) 09/02/24 17:52 Ur Culture Indicated? No/not indicated 09/02/24 17:52 SARS-CoV-2 (PCR) Negative (NEGATIVE) 09/02/24 17:15 Influenza Type A (PCR) Positive (NEGATIVE) A 09/02/24 17:15 Influenza Type B (PCR) Negative (NEGATIVE) 09/02/24 17:15 RSV (PCR) Negative (NEGATIVE) 09/02/24 17:15 Physical Exam Vital Signs: Vital Signs Temperature 99.2 F Temperature 101 F Pulse Rate 92 Respiratory Rate 35 Respiratory Rate 35 Respiratory Rate 34 Blood Pressure 140/65 O2 Sat by Pulse Oximetry 91 Assessment/Plan (1) Sepsis: Qualifiers: Acute respiratory failure type: with hypoxia Sepsis acute organ dysfunction status: with acute organ dysfunction Sepsis type: sepsis due to unspecified organism Severe sepsis acute organ dysfunction type: acute respiratory failure Severe sepsis shock status: without septic shock Qualified Code(s): A41.9 - Sepsis, unspecified organism; R65.20 - Severe sepsis without septic shock; J96.01 - Acute respiratory failure with hypoxia Narrative Support Text: Due to influenza A. Status: Acute (2) Influenza A: Narrative Support Text: Continue Tamiflu and Decadron. Status: Acute (3) Bilateral pneumonia: Qualifiers: Lung location: lower lobe of lung Pneumonia type: due to unspecified organism Qualified Code(s): J18.9 - Pneumonia, unspecified organism Narrative Support Text: Continue Levaquin due to immunocompromised status and signs of pneumonia on x- ray and CT. Status: Acute (4) Hypoxia: Narrative Support Text: Continue O2 supplementation. Big factor of when he can go home relates to when he is back on room air. His insurance will not pay for oxygen for an acute issue Status: Acute
[2024-09-03] MEDS ORDERED: NS 1/2 1,000 ML IV 1,000 ML IV ONE (17:03)
[2024-09-03] MEDS: SNACK - Diabetic Appropriate PO SCH (20:26)
[2024-09-04 05:31] LABS: BASOPHILS % (AUTO) 0.1 % (0.2-1.0); HEMATOCRIT 38.1 % (42.0-54.0); LYMPHOCYTES # (AUTO) 1.4 X10^3/uL (1.3-2.9); LYMPHOCYTES % (AUTO) 14.4 % (21.0-51.0); MEAN CORPUSCULAR HEMOGLOBIN 30.3 pg (27.0-34.0); MEAN CORPUSCULAR HGB CONC 34.2 g/dL (33.0-35.0); MEAN CORPUSCULAR VOLUME 88.6 fL (80.0-100.0); MEAN PLATELET VOLUME 8.6 fL (7.4-11.0); MONOCYTES # (AUTO) 0.7 x10^3/uL (0.3-0.8); MONOCYTES % (AUTO) 7.1 % (0.0-13.0); NEUTROPHILS # (AUTO) 7.7 x10^3/uL (2.2-4.8); NEUTROPHILS % (AUTO) 78.4 % (42.0-75.0); PLATELET COUNT 142 X10^3/uL (150.0-450.0); RED CELL DISTRIBUTION WIDTH 15.2 % (11.6-16.5); WHITE BLOOD COUNT 9.8 X10^3/uL (3.6-10.0)
[2024-09-04 05:46] LABS: ALANINE AMINOTRANSFERASE 24 Units/L (12-78); ALBUMIN 2.8 g/dL (3.4-5.0); ALKALINE PHOSPHATASE 78 Units/L (46-116); ASPARTATE AMINO TRANSFERASE 22 Units/L (15-37); BLOOD UREA NITROGEN 16 mg/dL (7-18); CARBON DIOXIDE 26.4 mmol/L (21-32); CHLORIDE 105 mmol/L (98-107); COR NA(FOR HYPERGLY) 139 mmol/L (136-145); CREATININE 1.45 mg/dL (0.70-1.30); GLUCOSE 120 mg/dL (65-99); MAGNESIUM 1.5 mg/dL (2.0-2.9); POTASSIUM 4.1 mmol/L (3.5-5.1); SODIUM 139 mmol/L (136-145); TOTAL PROTEIN 6.7 g/dL (6.4-8.2); eGFR NON BLACK RACES 56 (>60)
[2024-09-04 08:31] LABS: CREATININE 1.29 mg/dL (0.70-1.30); VANCOMYCIN,TROUGH 15.4 ug/mL (15-20)
[2024-09-04] MEDS: MAG-OX TAB PO SCH (08:50)
[2024-09-04] MEDS: PHARMACY COMMENT IV NR (08:56)
[2024-09-04] MEDS ORDERED: TACROLIMUS PO SCH (10:00)
[2024-09-04] MEDS: LEVAQUIN PREMIX IV 500 MG 500 MG/100 ML BAG IV SCH (11:10)
[2024-09-04] MEDS: DIFLUCAN PO SCH (11:10)
[2024-09-04] MEDS ORDERED: NS 1/2 1,000 ML IV 1,000 ML IV ONE (13:32)
[2024-09-04] MEDS: CONSULT PHARMACY - POTASSIUM & MAGNESIUM XX SCH (15:13)
[2024-09-04] MEDS: NovoLIN R (or HumuLIN R) SUBCUT PRN (16:29)
[2024-09-05 05:15] LABS: BASOPHILS % (AUTO) 0.1 % (0.2-1.0); HEMATOCRIT 36.4 % (42.0-54.0); HEMOGLOBIN 12.6 g/dL (13.5-18.0); LYMPHOCYTES # (AUTO) 1.5 X10^3/uL (1.3-2.9); LYMPHOCYTES % (AUTO) 15.2 % (21.0-51.0); MEAN CORPUSCULAR HEMOGLOBIN 30.3 pg (27.0-34.0); MEAN CORPUSCULAR HGB CONC 34.6 g/dL (33.0-35.0); MEAN CORPUSCULAR VOLUME 87.5 fL (80.0-100.0); MEAN PLATELET VOLUME 8.2 fL (7.4-11.0); MONOCYTES # (AUTO) 0.7 x10^3/uL (0.3-0.8); MONOCYTES % (AUTO) 6.5 % (0.0-13.0); NEUTROPHILS % (AUTO) 78.2 % (42.0-75.0); PLATELET COUNT 152 X10^3/uL (150.0-450.0); RED BLOOD COUNT 4.15 X10^6/uL (4.7-6.0); RED CELL DISTRIBUTION WIDTH 15.1 % (11.6-16.5); WHITE BLOOD COUNT 10.2 X10^3/uL (3.6-10.0)
[2024-09-05 05:52] LABS: ALANINE AMINOTRANSFERASE 21 Units/L (12-78); ALBUMIN 2.8 g/dL (3.4-5.0); ALKALINE PHOSPHATASE 67 Units/L (46-116); ASPARTATE AMINO TRANSFERASE 19 Units/L (15-37); BLOOD UREA NITROGEN 13 mg/dL (7-18); CARBON DIOXIDE 23.9 mmol/L (21-32); CHLORIDE 106 mmol/L (98-107); COR NA(FOR HYPERGLY) 141 mmol/L (136-145); CREATININE 1.42 mg/dL (0.70-1.30); GLUCOSE 113 mg/dL (65-99); MAGNESIUM 1.3 mg/dL (2.0-2.9); POTASSIUM 3.4 mmol/L (3.5-5.1); SODIUM 141 mmol/L (136-145); TOTAL PROTEIN 6.6 g/dL (6.4-8.2); eGFR NON BLACK RACES 57 (>60)
[2024-09-05] MEDS: CONSULT PHARMACY - POTASSIUM & MAGNESIUM XX SCH (07:13)
[2024-09-05 09:07] VITALS: O2SAT 95
[2024-09-05 09:30] VITALS: BP 120/62; PULSE 81; RESP 18; TEMP 97.3
[2024-09-05] MEDS: DECADRON TAB PO SCH (09:39)
[2024-09-05] MEDS: K-DUR TAB 20 MEQ PO SCH (10:03)
[2024-09-05] MEDS: MAG-OX TAB PO SCH (10:03)
--- NOTE | 2024-09-05 10:17 | RAD ---
EXAM:CHEST, 1 VIEWHISTORY:flu, hypoxia;COMPARISON:09/03/2024FINDINGS:Th e cardiomediastinal silhouette is stable.Hypoventilatory exam with faint bilateral airspace opacities most notable in the right upper and left lower lobes. No pneumothorax or effusion.No acute osseous abnormality.IMPRESSION:Bilateral opacities which may be due to atelectasis or pneumonia. Continued follow-up recommended.THIS IS AN ELECTRONICALLY VERIFIED FINAL REPORT09/05/2024 10:06 AM - Electronically signed by Wei Oviedo MD
== END 2024-09-05 12:27 | disposition home or self-care (01) ==
LOC: SUPCPDRO → ER 14:00 → ICU 14:00
PROVIDERS: ADMIT Family Medicine; ATTEND Family Medicine
DX: J18.9 Pneumonia, unspecified organism; Z94.83 Pancreas transplant status; E11.9 Type 2 diabetes mellitus without complications; Z03.818 Encounter for observation for suspected exposure to other biological agents ruled out; Z79.624 Long term (current) use of inhibitors of nucleotide synthesis; Z29.89 Encounter for other specified prophylactic measures; R00.0 Tachycardia, unspecified; J10.1 Influenza due to other identified influenza virus with other respiratory manifestations; R79.1 Abnormal coagulation profile; J96.01 Acute respiratory failure with hypoxia; Z94.0 Kidney transplant status; I10 Essential (primary) hypertension